=== PATIENT | female | born 1970 | race Caucasian/White ===

== ENCOUNTER 2023-03-30 11:25 | Emergency (ER) | payer OTHER, SELFPAY ==
[2023-03-30] VITALS (76 sets, daily range): BP systolic 105–146; BP diastolic 69–104; PULSE 58–75; RESP 14–37; TEMP 36.6; O2SAT 91–99
--- NOTE | 2023-03-30 11:50 | DI.RAD.S_ITS ---
PROCEDURE: XR CHEST 1V INDICATIONS: chest pain TECHNIQUE: One view of the chest was acquired. COMPARISON: [facility], CHEST 2 VIEW, 08/22/2010, 10:20. [facility], CHEST 2 VIEW, 09/17/2009, 9:55. FINDINGS: Surgical changes and devices: None. Lungs and pleura: Lungs are clear. No pleural effusions or pneumothorax. Mediastinum: Mediastinal contours appear normal. Heart size is normal. Bones and chest wall: No suspicious bony lesions. Overlying soft tissues appear unremarkable. IMPRESSION: No acute cardiopulmonary abnormality. Dictated by: Ernesto Lovell M.D. on 03/30/2023 at 12:30 Approved by: Ernesto Lovell M.D. on 03/30/2023 at 12:31
[2023-03-30 12:20] LABS: Add Manual Diff / Slide Review NO; Basophils Absolute Auto 100 /uL (0-100); Eosinophils Absolute Auto 100 /uL (0-450); Eosinophils Percent Auto 2.1 % (2-4); Hematocrit 44.7 % (36-46); Hemoglobin 15.4 g/dL (12.0-16.0); Lymphocytes Absolute Auto 1600 /uL (1100-4500); Lymphocytes Percent Auto 30.6 % (25-40); Mean Corpuscular HGB Conc 34.6 % (30-36); Mean Corpuscular Hemoglobin 32.1 PG (26-34); Mean Corpuscular Volume 92.8 fL (80-100); Monocytes Absolute Auto 400 /uL (0-900); Monocytes Percent Auto 7.1 % (3-14); Neutrophils Absolute Auto 3100 /uL (1500-7000); Neutrophils Percent Auto 59.2 % (50-75); Platelet Count 186 X10^3/uL (150-400); Red Blood Cell Count 4.81 X10^6/uL (4.0-5.2); Red Cell Distribution Width 12.7 % (11.6-14.8); White Blood Cell Count 5.3 X10^3/uL (4.5-11.0)
[2023-03-30 12:31] LABS: Prothrombin Time 11.9 SECONDS (10.1-12.7)
[2023-03-30 12:33] LABS: PTT Partial Thromboplastin Tim 35 SECONDS (26-36)
[2023-03-30 12:37] LABS: Alanine Aminotransferase 15 IU/L (<35); Albumin 4.7 g/dL (3.5-5.0); Albumin Globulin Ratio 1.7 (1.0-2.8); Alkaline Phosphatase 77 U/L (38-126); Aspartate Aminotransferase 26 IU/L (14-36); BUN Creatinine Ratio 18.7 (6-22); Bilirubin Total 0.5 mg/dL (0.2-1.3); Blood Urea Nitrogen 14 mg/dL (7-17); Calcium 9.9 mg/dL (8.4-10.2); Carbon Dioxide 26 mmol/L (22-32); Chloride 107 mmol/L (98-107); Creatine Kinase 57 U/L (30-135); Estimated Glomerular Filt Rate > 60 mL/min (>60); Globulin 2.7 g/dL (1.7-4.1); Glucose 89 mg/dL (70-100); HEMOLYSIS 50 (0-50); Lipase 64 U/L (23-300); Magnesium 2.1 mg/dL (1.6-2.3); Potassium 4.1 mmol/L (3.4-5.1); Sodium 140 mmol/L (137-145); Total Protein 7.4 g/dL (6.3-8.2)
[2023-03-30 12:48] LABS: Troponin I < 0.012 ng/mL (0.01-0.034)
--- NOTE | 2023-03-30 12:56 | ED_ITS ---
HPI - Chest Pain <Brady Torres PA-C - Last Filed: 03/30/23 18:37> General Chief Complaint: Chest Pain Stated Complaint: sent by [facility] chest pain Time Seen by Provider: 03/30/23 12:54 Source: patient Mode of arrival: Ambulatory History of Present Illness HPI narrative: This is a 52-year-old female presents emergency department due to a chest pressure for the last 3 days. She states that this is had happened intermittently in the past which is usually improved. States the pressure is constant it is not worsened with physical activity. Denies any significant GERD like symptoms, shortness of breath, abdominal pain, or any other concerning signs or symptoms. No cardiac history. Denies any left arm pain or radiation of the pain. Reports some nausea. History of Hodgkin's lymphoma treated successfully with chemotherapy about 20 years ago. Related Data Home Medications Medication Instructions Recorded Confirmed dihydroergotamine 0.5 mg/pump act. 4 mg intranasal PRN ##0 01/15/13 (4 mg/mL) nasal spray (Migranal) [MULTIVITAMIN GUMMY] PO QDAY ##0 02/05/13 zonisamide 50 mg capsule 50 mg PO BID ##0 02/05/13 meloxicam 7.5 mg tablet 7.5 mg PO BID 03/30/23 03/30/23 Previous Rx's Medication Instructions Recorded terbinafine HCl 250 mg tablet 250 mg PO QDAY ##42 01/15/13 (Lamisil) Allergies Allergy/AdvReac Type Severity Reaction Status Date / Time No Known Drug Allergies Allergy Verified 03/30/23 16:38 Review of Systems <Brady Torres PA-C - Last Filed: 03/30/23 18:37> Review of Systems Narrative: GENERAL: Denies chills, fatigue, malaise, fever, sweats. HEENT: Denies sinus pain, ear pain, sore throat, difficulty swallowing, dizziness. RESPIRATORY: Denies dyspnea, cough, wheezing, hemoptysis, sputum. CARDIOVASCULAR: Reports chest pain, denies palpitations, orthopnea, edema, GASTROINTESTINAL: Reports nausea, denies vomiting, abdominal pain, diarrhea, constipation, melena. : Denies dysuria, frequency, incontinence, hematuria, urinary retention. MUSCULOSKELETAL: denies weakness, joint pain, or bony pain SKIN: Denies rash, skin lesions, or other NEUROLOGIC: Denies weakness, headache, numbness, change in speech, confusion, seizures, incoordination. PSYCHIATRIC: No concerning psychosocial issues. 12 point review of systems is negative except for those stated above Patient History <Brady Torres PA-C - Last Filed: 03/30/23 18:37> Social History Smoking Status: Former smoker Smoking Status: Former smoker alcohol intake frequency: holidays/special occasions only Substance Use Type: does not use Exam <RUBÉN Gonzalez Last Filed: 03/30/23 18:37> Narrative Exam Narrative: GENERAL: Well-developed patient, in mild distress. HEAD: Atraumatic. Normocephalic. EYES: Pupils equal round and reactive. Extraocular motions intact. No scleral icterus. No injection or drainage. ENT: Nose without bleeding, purulent drainage. Throat without erythema, tonsillar hypertrophy or exudate. Airway patent. NECK: Trachea midline. Non tender CARDIOVASCULAR: Regular rate and rhythm without murmurs, gallops, or rubs. RESPIRATORY: Clear to auscultation. Breath sounds equal bilaterally. No wheezes, rales, or rhonchi. GASTROINTESTINAL: Abdomen soft, non-tender, nondistended. EXTREMITIES: No edema or joint tenderness. BACK: Nontender without deformity or crepitance. No flank tenderness. NEURO: AOx3. SKIN: No rash or erythema of visible areas Initial Vital Signs Initial Vital Signs: Vital Signs Temperature 98 F 03/30/23 11:47 Pulse Rate 65 03/30/23 11:47 Respiratory Rate 17 03/30/23 11:47 Blood Pressure 144/89 H 03/30/23 11:47 Pulse Oximetry 99 03/30/23 11:47 Oxygen Delivery Method Room Air 03/30/23 11:47 <Don Bates DO - Last Filed: 03/31/23 09:00> Initial Vital Signs Initial Vital Signs: Vital Signs Temperature 98 F 03/30/23 11:47 Pulse Rate 65 03/30/23 11:47 Respiratory Rate 17 03/30/23 11:47 Blood Pressure 144/89 H 03/30/23 11:47 Pulse Oximetry 99 03/30/23 11:47 Oxygen Delivery Method Room Air 03/30/23 11:47 Course <RUBÉN Gonzalez Last Filed: 03/30/23 18:37> Orders Ordered: Discontinued Medications Aspirin (Aspirin 81 Mg Chew Tab) 324 mg PO NOW ONE Stop: 03/30/23 13:14 Last Admin: 03/30/23 13:38 Dose: Not Given Documented By: BRIAN Nitroglycerin (Nitroglycerin 0.4 Mg Sl Tab) 0.4 mg SL [id number] PRN PRN Reason: Chest Pain Last Admin: 03/30/23 13:58 Dose: 0.4 mg Documented By: Admin: 03/30/23 13:45 Dose: 0.4 mg Documented By: Admin: 03/30/23 13:36 Dose: 0.4 mg Documented By: BRIAN Consultations Consultation #1: [id number]: Spoke with Dr. Botello, client service manager, who recommended transferring to [facility] for stress test and echo. Vital Signs Vital signs: Vital Signs - 8 hr 03/30/23 11:47 03/30/23 12:53 03/30/23 13:00 Temperature 98 F Pulse Rate 65 60 65 Respiratory Rate 17 23 27 H Blood Pressure 144/89 H Pulse Oximetry 99 97 97 Oxygen Delivery Method Room Air 03/30/23 13:01 03/30/23 13:01 03/30/23 13:30 Temperature Pulse Rate 63 63 Respiratory Rate 21 18 Blood Pressure 132/104 H Pulse Oximetry 98 98 Oxygen Delivery Method 03/30/23 13:30 03/30/23 13:35 03/30/23 13:35 Temperature Pulse Rate 61 Respiratory Rate 19 Blood Pressure 143/90 H 136/92 H Pulse Oximetry 98 Oxygen Delivery Method 03/30/23 13:36 03/30/23 13:40 03/30/23 13:40 Temperature Pulse Rate 60 67 Respiratory Rate 24 Blood Pressure 136/92 H 121/83 Pulse Oximetry 96 Oxygen Delivery Method 03/30/23 13:45 03/30/23 13:45 03/30/23 13:45 Temperature Pulse Rate 62 64 Respiratory Rate 24 Blood Pressure 121/83 126/81 Pulse Oximetry 94 Oxygen Delivery Method 03/30/23 13:50 03/30/23 13:50 03/30/23 13:55 Temperature Pulse Rate 67 65 Respiratory Rate 26 H 26 H Blood Pressure 120/80 Pulse Oximetry 96 97 Oxygen Delivery Method 03/30/23 13:55 03/30/23 13:58 03/30/23 14:00 Temperature Pulse Rate 65 67 Respiratory Rate 24 Blood Pressure 119/79 119/79 Pulse Oximetry 96 Oxygen Delivery Method 03/30/23 14:00 03/30/23 14:05 03/30/23 14:05 Temperature Pulse Rate 66 Respiratory Rate 17 Blood Pressure 123/84 105/73 Pulse Oximetry 97 Oxygen Delivery Method 03/30/23 14:10 03/30/23 14:10 03/30/23 14:16 Temperature Pulse Rate 62 68 Respiratory Rate 18 27 H Blood Pressure 116/76 Pulse Oximetry 96 97 Oxygen Delivery Method 03/30/23 14:16 03/30/23 14:20 03/30/23 14:20 Temperature Pulse Rate 60 Respiratory Rate 18 Blood Pressure 110/69 117/77 Pulse Oximetry 97 Oxygen Delivery Method 03/30/23 14:25 03/30/23 14:25 03/30/23 14:30 Temperature Pulse Rate 59 L 62 Respiratory Rate 21 24 Blood Pressure 114/74 Pulse Oximetry 97 98 Oxygen Delivery Method 03/30/23 14:30 03/30/23 14:35 03/30/23 14:35 Temperature Pulse Rate 61 Respiratory Rate 21 Blood Pressure 105/73 124/75 Pulse Oximetry 96 Oxygen Delivery Method 03/30/23 14:40 03/30/23 14:40 03/30/23 14:45 Temperature Pulse Rate 60 59 L Respiratory Rate 16 14 Blood Pressure 112/81 Pulse Oximetry 98 97 Oxygen Delivery Method 03/30/23 14:45 03/30/23 14:50 03/30/23 14:50 Temperature Pulse Rate 61 Respiratory Rate 14 Blood Pressure 112/80 113/79 Pulse Oximetry 98 Oxygen Delivery Method 03/30/23 14:56 03/30/23 14:56 03/30/23 15:00 Temperature Pulse Rate 61 62 Respiratory Rate 23 28 H Blood Pressure 118/73 Pulse Oximetry 96 96 Oxygen Delivery Method 03/30/23 15:00 03/30/23 15:05 03/30/23 15:05 Temperature Pulse Rate 61 Respiratory Rate 23 Blood Pressure 124/80 119/76 Pulse Oximetry 98 Oxygen Delivery Method 03/30/23 15:10 03/30/23 15:10 03/30/23 15:15 Temperature Pulse Rate 61 Respiratory Rate 24 Blood Pressure 113/76 116/79 Pulse Oximetry 96 Oxygen Delivery Method 03/30/23 15:15 03/30/23 15:20 03/30/23 15:20 Temperature Pulse Rate 60 59 L Respiratory Rate 21 18 Blood Pressure 118/78 Pulse Oximetry 95 96 Oxygen Delivery Method 03/30/23 15:25 03/30/23 15:25 03/30/23 15:30 Temperature Pulse Rate 64 64 Respiratory Rate 24 19 Blood Pressure 118/79 Pulse Oximetry 98 96 Oxygen Delivery Method 03/30/23 15:35 03/30/23 15:35 03/30/23 15:40 Temperature Pulse Rate 58 L 58 L Respiratory Rate 17 17 Blood Pressure 121/77 Pulse Oximetry 98 97 Oxygen Delivery Method 03/30/23 15:40 03/30/23 15:45 03/30/23 15:45 Temperature Pulse Rate 60 Respiratory Rate 19 Blood Pressure 109/75 114/77 Pulse Oximetry 98 Oxygen Delivery Method 03/30/23 15:51 03/30/23 15:51 03/30/23 15:55 Temperature Pulse Rate 59 L 61 Respiratory Rate 23 14 Blood Pressure 114/78 Pulse Oximetry 98 98 Oxygen Delivery Method 03/30/23 15:55 03/30/23 16:00 03/30/23 16:00 Temperature Pulse Rate 60 Respiratory Rate 15 Blood Pressure 119/77 114/78 Pulse Oximetry 99 Oxygen Delivery Method 03/30/23 16:06 03/30/23 16:06 03/30/23 16:10 Temperature Pulse Rate 59 L Respiratory Rate 23 Blood Pressure 106/74 109/78 Pulse Oximetry 96 Oxygen Delivery Method 03/30/23 16:10 03/30/23 16:15 03/30/23 16:15 Temperature Pulse Rate 60 60 Respiratory Rate 20 24 Blood Pressure 117/79 Pulse Oximetry 97 98 Oxygen Delivery Method 03/30/23 16:20 03/30/23 16:20 03/30/23 16:25 Temperature Pulse Rate 60 63 Respiratory Rate 19 22 Blood Pressure 110/79 Pulse Oximetry 98 98 Oxygen Delivery Method 03/30/23 16:25 03/30/23 16:30 03/30/23 16:30 Temperature Pulse Rate 62 Respiratory Rate 18 Blood Pressure 122/84 125/85 Pulse Oximetry 97 Oxygen Delivery Method <Don Bates DO - Last Filed: 03/31/23 09:00> Orders Ordered: Discontinued Medications Aspirin (Aspirin 81 Mg Chew Tab) 324 mg PO NOW ONE Stop: 03/30/23 13:14 Last Admin: 03/30/23 13:38 Dose: Not Given Documented By: BRIAN Nitroglycerin (Nitroglycerin 0.4 Mg Sl Tab) 0.4 mg SL [id number] PRN PRN Reason: Chest Pain Last Admin: 03/30/23 13:58 Dose: 0.4 mg Documented By: Admin: 03/30/23 13:45 Dose: 0.4 mg Documented By: Admin: 03/30/23 13:36 Dose: 0.4 mg Documented By: BRIAN Vital Signs Vital signs: Vital Signs - 8 hr 03/30/23 11:47 03/30/23 12:53 03/30/23 13:00 Temperature 98 F Pulse Rate 65 60 65 Respiratory Rate 17 23 27 H Blood Pressure 144/89 H Pulse Oximetry 99 97 97 Oxygen Delivery Method Room Air 03/30/23 13:01 03/30/23 13:01 03/30/23 13:30 Temperature Pulse Rate 63 63 Respiratory Rate 21 18 Blood Pressure 132/104 H Pulse Oximetry 98 98 Oxygen Delivery Method 03/30/23 13:30 03/30/23 13:35 03/30/23 13:35 Temperature Pulse Rate 61 Respiratory Rate 19 Blood Pressure 143/90 H 136/92 H Pulse Oximetry 98 Oxygen Delivery Method 03/30/23 13:36 03/30/23 13:40 03/30/23 13:40 Temperature Pulse Rate 60 67 Respiratory Rate 24 Blood Pressure 136/92 H 121/83 Pulse Oximetry 96 Oxygen Delivery Method 03/30/23 13:45 03/30/23 13:45 03/30/23 13:45 Temperature Pulse Rate 62 64 Respiratory Rate 24 Blood Pressure 121/83 126/81 Pulse Oximetry 94 Oxygen Delivery Method 03/30/23 13:50 03/30/23 13:50 03/30/23 13:55 Temperature Pulse Rate 67 65 Respiratory Rate 26 H 26 H Blood Pressure 120/80 Pulse Oximetry 96 97 Oxygen Delivery Method 03/30/23 13:55 03/30/23 13:58 03/30/23 14:00 Temperature Pulse Rate 65 67 Respiratory Rate 24 Blood Pressure 119/79 119/79 Pulse Oximetry 96 Oxygen Delivery Method 03/30/23 14:00 03/30/23 14:05 03/30/23 14:05 Temperature Pulse Rate 66 Respiratory Rate 17 Blood Pressure 123/84 105/73 Pulse Oximetry 97 Oxygen Delivery Method 03/30/23 14:10 03/30/23 14:10 03/30/23 14:16 Temperature Pulse Rate 62 68 Respiratory Rate 18 27 H Blood Pressure 116/76 Pulse Oximetry 96 97 Oxygen Delivery Method 03/30/23 14:16 03/30/23 14:20 03/30/23 14:20 Temperature Pulse Rate 60 Respiratory Rate 18 Blood Pressure 110/69 117/77 Pulse Oximetry 97 Oxygen Delivery Method 03/30/23 14:25 03/30/23 14:25 03/30/23 14:30 Temperature Pulse Rate 59 L 62 Respiratory Rate 21 24 Blood Pressure 114/74 Pulse Oximetry 97 98 Oxygen Delivery Method 03/30/23 14:30 03/30/23 14:35 03/30/23 14:35 Temperature Pulse Rate 61 Respiratory Rate 21 Blood Pressure 105/73 124/75 Pulse Oximetry 96 Oxygen Delivery Method 03/30/23 14:40 03/30/23 14:40 03/30/23 14:45 Temperature Pulse Rate 60 59 L Respiratory Rate 16 14 Blood Pressure 112/81 Pulse Oximetry 98 97 Oxygen Delivery Method 03/30/23 14:45 03/30/23 14:50 03/30/23 14:50 Temperature Pulse Rate 61 Respiratory Rate 14 Blood Pressure 112/80 113/79 Pulse Oximetry 98 Oxygen Delivery Method 03/30/23 14:56 03/30/23 14:56 03/30/23 15:00 Temperature Pulse Rate 61 62 Respiratory Rate 23 28 H Blood Pressure 118/73 Pulse Oximetry 96 96 Oxygen Delivery Method 03/30/23 15:00 03/30/23 15:05 03/30/23 15:05 Temperature Pulse Rate 61 Respiratory Rate 23 Blood Pressure 124/80 119/76 Pulse Oximetry 98 Oxygen Delivery Method 03/30/23 15:10 03/30/23 15:10 03/30/23 15:15 Temperature Pulse Rate 61 Respiratory Rate 24 Blood Pressure 113/76 116/79 Pulse Oximetry 96 Oxygen Delivery Method 03/30/23 15:15 03/30/23 15:20 03/30/23 15:20 Temperature Pulse Rate 60 59 L Respiratory Rate 21 18 Blood Pressure 118/78 Pulse Oximetry 95 96 Oxygen Delivery Method 03/30/23 15:25 03/30/23 15:25 03/30/23 15:30 Temperature Pulse Rate 64 64 Respiratory Rate 24 19 Blood Pressure 118/79 Pulse Oximetry 98 96 Oxygen Delivery Method 03/30/23 15:35 03/30/23 15:35 03/30/23 15:40 Temperature Pulse Rate 58 L 58 L Respiratory Rate 17 17 Blood Pressure 121/77 Pulse Oximetry 98 97 Oxygen Delivery Method 03/30/23 15:40 03/30/23 15:45 03/30/23 15:45 Temperature Pulse Rate 60 Respiratory Rate 19 Blood Pressure 109/75 114/77 Pulse Oximetry 98 Oxygen Delivery Method 03/30/23 15:51 03/30/23 15:51 03/30/23 15:55 Temperature Pulse Rate 59 L 61 Respiratory Rate 23 14 Blood Pressure 114/78 Pulse Oximetry 98 98 Oxygen Delivery Method 03/30/23 15:55 03/30/23 16:00 03/30/23 16:00 Temperature Pulse Rate 60 Respiratory Rate 15 Blood Pressure 119/77 114/78 Pulse Oximetry 99 Oxygen Delivery Method 03/30/23 16:06 03/30/23 16:06 03/30/23 16:10 Temperature Pulse Rate 59 L Respiratory Rate 23 Blood Pressure 106/74 109/78 Pulse Oximetry 96 Oxygen Delivery Method 03/30/23 16:10 03/30/23 16:15 03/30/23 16:15 Temperature Pulse Rate 60 60 Respiratory Rate 20 24 Blood Pressure 117/79 Pulse Oximetry 97 98 Oxygen Delivery Method 03/30/23 16:20 03/30/23 16:20 03/30/23 16:25 Temperature Pulse Rate 60 63 Respiratory Rate 19 22 Blood Pressure 110/79 Pulse Oximetry 98 98 Oxygen Delivery Method 03/30/23 16:25 03/30/23 16:30 03/30/23 16:30 Temperature Pulse Rate 62 Respiratory Rate 18 Blood Pressure 122/84 125/85 Pulse Oximetry 97 Oxygen Delivery Method MDM - Chest Pain <Brady Trores PA-C - Last Filed: 03/30/23 18:37> Lab Data 03/30/23 11:50 03/30/23 11:50 Labs: Lab Results 03/30/23 03/30/23 03/30/23 Range/Units 11:50 14:50 16:44 WBC 5.3 (4.5-11.0) X10^3/uL RBC 4.81 (4.0-5.2) X10^6/uL Hgb 15.4 (12.0-16.0) g/dL Hct 44.7 (36-46) % MCV 92.8 (80-100) fL MCH 32.1 (26-34) PG MCHC 34.6 (30-36) % RDW 12.7 (11.6-14.8) % Plt Count 186 (150-400) X10^3/uL Neut % (Auto) 59.2 (50-75) % Lymph % (Auto) 30.6 (25-40) % Gillespie % (Auto) 7.1 (3-14) % Eos % (Auto) 2.1 (2-4) % Baso % (Auto) 1.0 (0-2) % Neut # (Auto) 3100 (0984-0106) /uL Lymph # (Auto) 1600 (0119-1034) /uL Gillespie # (Auto) 400 (0-900) /uL Eos # (Auto) 100 (0-450) /uL Baso # (Auto) 100 (0-100) /uL PT 11.9 (10.1-12.7) SECONDS INR 1.0 (0.9-1.3) APTT 35 (26-36) SECONDS Sodium 140 (137-145) mmol/L Potassium 4.1 (3.4-5.1) mmol/L Chloride 107 (98-107) mmol/L Carbon Dioxide 26 (22-32) mmol/L BUN 14 (7-17) mg/dL Creatinine 0.75 (0.52-1.04) mg/dL Estimated GFR > 60 (>60) mL/min BUN/Creatinine Ratio 18.7 (6-22) Glucose 89 (70-100) mg/dL Calcium 9.9 (8.4-10.2) mg/dL Magnesium 2.1 (1.6-2.3) mg/dL Total Bilirubin 0.5 (0.2-1.3) mg/dL AST 26 (14-36) IU/L ALT 15 (<35) IU/L Alkaline Phosphatase 77 (38-126) U/L Total Creatine Kinase 57 (30-135) U/L Troponin I < 0.012 < 0.012 (0.01-0.034) ng/mL Total Protein 7.4 (6.3-8.2) g/dL Albumin 4.7 (3.5-5.0) g/dL Globulin 2.7 (1.7-4.1) g/dL Albumin/Globulin Ratio 1.7 (1.0-2.8) Lipase 64 (23-300) U/L SARS-CoV-2 (PCR) Negative (Negative) Imaging Data Chest x-ray: Radiologist's Impression: [address] [address] XRay Report Signed Patient: Marlena Bean MR#: [id number] : 1970 Acct:[id number] Age/Sex: 52 / F Date of Service: 03/30/23 Loc: ED Accession Number: [id number] Procedure: XR chest 1V Ordering Provider: Don Bates D.O. PROCEDURE: XR CHEST 1V INDICATIONS: chest pain TECHNIQUE: One view of the chest was acquired. COMPARISON: [facility], CHEST 2 VIEW, 08/22/2010, 10:20. [facility], CHEST 2 VIEW, 09/17/2009, 9:55. FINDINGS: Surgical changes and devices: None. Lungs and pleura: Lungs are clear. No pleural effusions or pneumothorax. Mediastinum: Mediastinal contours appear normal. Heart size is normal. Bones and chest wall: No suspicious bony lesions. Overlying soft tissues appear unremarkable. IMPRESSION: No acute cardiopulmonary abnormality. Dictated by: Ernesto Lovell M.D. on 03/30/2023 at 12:30 Approved by: Ernesto Lovell M.D. on 03/30/2023 at 12:31 ECG Data Interpretation: 1159: EKG is normal sinus rhythm rate 66 beats per minute and free of any signs of ischemia or ectopy. No ST segmental elevation or depression. No T wave inversions 1500: EKG is normal sinus rhythm rate 62 and free of any signs of ischemia or ectopy. No ST segmental elevation or depression. No T wave inversions. Unchanged from prior MDM Narrative Medical decision making narrative: MDM * differential diagnosis includes but not limited to STEMI, NSTEMI, pneumonia, GERD,, aortic dissection, musculoskeletal chest pain * Prior records reviewed: Patient has not been here to the emergency department in the past. * My lab interpretation: Troponin within normal limits, CBC and CMP unremarkable, lipase within normal limits * My imgaing interpretation: Chest x-ray unremarkable * Clinical Decision Rules/Scores evaluated: Heart score of 4 * Independent discussions with: None ED Course: This is a 52-year-old female presents emergency department due to 3 days chest pain. Initial troponin and EKG unremarkable as well as other lab work. Chest x-ray unremarkable. Due to the history and family history repeat troponin and EKG were ordered which were also unremarkable. Patient was given nitroglycerin which significantly helped to improve the pain. The case was discussed with Dr. Botello, client service manager, who recommended transfer to [facility] for stress test and echo. Spoke with hospitalist at scheduled who kindly accepted the patient for admission. Shared Decision Making: Discussed plan with patient who is comfortable with the plan. Social Considerations: None Disposition: Discharged to home <Don Bates DO - Last Filed: 03/31/23 09:00> Lab Data Labs: Lab Results 03/30/23 03/30/23 03/30/23 Range/Units 11:50 14:50 16:44 WBC 5.3 (4.5-11.0) X10^3/uL RBC 4.81 (4.0-5.2) X10^6/uL Hgb 15.4 (12.0-16.0) g/dL Hct 44.7 (36-46) % MCV 92.8 (80-100) fL MCH 32.1 (26-34) PG MCHC 34.6 (30-36) % RDW 12.7 (11.6-14.8) % Plt Count 186 (150-400) X10^3/uL Neut % (Auto) 59.2 (50-75) % Lymph % (Auto) 30.6 (25-40) % Gillespie % (Auto) 7.1 (3-14) % Eos % (Auto) 2.1 (2-4) % Baso % (Auto) 1.0 (0-2) % Neut # (Auto) 3100 (2834-7328) /uL Lymph # (Auto) 1600 (6761-1104) /uL Gillespie # (Auto) 400 (0-900) /uL Eos # (Auto) 100 (0-450) /uL Baso # (Auto) 100 (0-100) /uL PT 11.9 (10.1-12.7) SECONDS INR 1.0 (0.9-1.3) APTT 35 (26-36) SECONDS Sodium 140 (137-145) mmol/L Potassium 4.1 (3.4-5.1) mmol/L Chloride 107 (98-107) mmol/L Carbon Dioxide 26 (22-32) mmol/L BUN 14 (7-17) mg/dL Creatinine 0.75 (0.52-1.04) mg/dL Estimated GFR > 60 (>60) mL/min BUN/Creatinine Ratio 18.7 (6-22) Glucose 89 (70-100) mg/dL Calcium 9.9 (8.4-10.2) mg/dL Magnesium 2.1 (1.6-2.3) mg/dL Total Bilirubin 0.5 (0.2-1.3) mg/dL AST 26 (14-36) IU/L ALT 15 (<35) IU/L Alkaline Phosphatase 77 (38-126) U/L Total Creatine Kinase 57 (30-135) U/L Troponin I < 0.012 < 0.012 (0.01-0.034) ng/mL Total Protein 7.4 (6.3-8.2) g/dL Albumin 4.7 (3.5-5.0) g/dL Globulin 2.7 (1.7-4.1) g/dL Albumin/Globulin Ratio 1.7 (1.0-2.8) Lipase 64 (23-300) U/L SARS-CoV-2 (PCR) Negative (Negative) Discharge Plan Departure Patient Disposition: [facility] Clinical Impression: Chest pain Prescriptions: No Action dihydroergotamine [Migranal] 4 MG/ML spray,non-aerosol 4 mg Intranasal PRN Qty: 0 terbinafine HCl [Lamisil] 250 MG tablet 250 mg PO QDAY Qty: 42 0RF zonisamide 50 MG capsule 50 mg PO BID Qty: 0 [MULTIVITAMIN GUMMY] PO QDAY Qty: 0 meloxicam 7.5 mg tablet 7.5 mg PO BID Referrals: Neetu Rodgers PA-C [Primary Care Provider] - ED Sign-out <Don Baets DO - Last Filed: 03/31/23 09:00> Cosign ED Attending Cosignature Attestation: I was immediately available in the department for consultation. Documentation has been reviewed. I agree with assessment and plan.
[2023-03-30] MEDS: NITROGLYCERIN 0.4 MG SL TAB SL ×3 (13:36→13:58)
[2023-03-30 15:46] LABS: Troponin I < 0.012 ng/mL (0.01-0.034)
[2023-03-30 17:05] LABS: COVID19 -Nasal RAPID Negative (Negative)
== END 2023-03-30 20:21 | disposition short-term general hospital (02) ==
PROVIDERS: Emergency Medicine; Emergency Provider Physician Assistant Medical; PCP Physician Assistant Medical
DX: R07.9 Chest pain, unspecified (principal); Z20.822 Contact with and (suspected) exposure to COVID-19
CPT/HCPCS: 36415; 71045; 80053; 82550; 83690; 83735; 84484; 85025; 85610; 85730; 87635; 93005; 99284; C9803